=== PATIENT | male | born 1975 | race Caucasian/White ===

== ENCOUNTER 2017-06-11 00:46 | Observation (INO) ==
[2017-06-11] MEDS ORDERED: 0.9 % SODIUM CHLORIDE 1,000 ML IV ONE (00:53)
[2017-06-11] MEDS ORDERED: ONDANSETRON 4 MG/2 ML VIAL IV ONE ×2 (00:53→06:20)
[2017-06-11] MEDS: HYDROmorphone 2 MG/ML SYRINGE IV PRN ×9 (01:11→23:21)
--- NOTE | 2017-06-11 01:32 | Emergency Department Note ---
Lower Extremity Injury HPI - General Chief Complaint: Extremity Injury, Lower Stated Complaint: Left Leg Injury Time Seen by Provider: 06/11/17 01:02 Source: patient, EMS Mode of arrival: EMS Limitations: no limitations - History of Present Illness HPI Narrative: 42-year-old male who was drinking alcohol with some of his friends and resting around. Apparently he got lifted up and twisted around such that he hurt his left distal leg. Deformity at the tib-fib area distal third. - Related Data Allergies Allergy/AdvReac Type Severity Reaction Status Date / Time No Known Drug Allergies Allergy Verified 06/11/17 00:48 Review of Systems All systems ED: reviewed and negative except as stated. Past Medical History - Past Medical History Attestation: Yes: The following information was validated with the patient. Medical history: Reports: no medical history Surgical history ED: Reports: no surgical history - Social History smoking status: Current every day smoker Alcohol use: Reports: Recent Physical Exam Normocephalic atraumatic. Conjunctive are clear sclerae nonicteric. No nasal discharge or congestion. Heart is regular rate and rhythm no murmur appreciated. Lungs are clear to auscultation bilaterally without wheezes rales rhonchi rales or respiratory distress. Exam of the left lower leg shows normal dorsalis pedis and posterior tibialis pulses. He is able to move his toes and foot around some. However this does elicit tenderness and area of deformity above the ankle-at roughly the distal third of the tib-fib. I do not see any marked edema or erythema. The foot is normal in appearance and temperature and sensation appears intact. Limitations: no limitations Course Vital Signs Temperature 98.1 F 06/11/17 00:48 Pulse Rate 69 06/11/17 00:48 Respiratory Rate 18 06/11/17 00:48 Blood Pressure 92/71 06/11/17 00:48 Pulse Oximetry (%) 97 06/11/17 00:48 Temperature 98.1 F 06/11/17 00:48 Pulse Rate 73 06/11/17 01:17 Respiratory Rate 18 06/11/17 00:48 Blood Pressure 93/67 06/11/17 01:17 Pulse Oximetry (%) 98 06/11/17 01:17 Extremity Injury, Lower - Radiology Data Radiology results reviewed: Yes I reviewed the patient's radiology results. X-ray of the left tib-fib shows displaced fracture distal one third Disposition Pt seen by MANAGER OF SALES/PA only: No Clinical Impression: Tibia/fibula fracture, shaft Qualifiers: Encounter type: initial encounter Fracture type: closed Laterality: left Qualified Code(s): S82.202A - Unspecified fracture of shaft of left tibia, initial encounter for closed fracture Summary: Patient initially seen and evaluated. Given Dilaudid and Zofran for pain and nausea. X-rays done Discussed patient with Dr. Hall orthopedist long term care pharmacist. He advised us the patient needed surgery. He will coordinate for this we will write transition orders. Basic laboratory and EKG ordered preoperatively Disposition: [facility] Condition: Fair
[2017-06-11] MEDS ORDERED: ONDANSETRON 4 MG/2 ML VIAL IV PRN ×3 (01:48→09:18)
[2017-06-11] MEDS ORDERED: NALOXONE HCL 0.4 MG/ML VIAL IV PRN ×2 (01:48→09:18)
[2017-06-11 02:25] LABS: Basophils # (Auto) 0 K/mcL (0.0-0.3); Basophils % (Auto) 0.3 % (0.0-2.0); Eosinophils # (Auto) 0.1 K/mcL (0.0-0.7); Eosinophils % (Auto) 1.1 % (0.0-7.0); Granulocytes % (Auto) 74.3 % (38.0-78.0); Lymphocytes # (Auto) 2.5 K/mcL (1.5-4.8); Mean Corpuscular HGB Conc 34.3 g/dL (31.0-36.0); Mean Corpuscular Hemoglobin 33.3 pg (26.0-34.0); Monocytes # (Auto) 0.5 K/mcL (0.1-0.9); Monocytes % (Auto) 4.3 % (1.0-12.0); Platelet Count 293 K/mcL (140-440); Red Cell Distribution Width 12.9 % (11.5-14.5)
[2017-06-11 02:46] LABS: ALT/SGPT 29 U/l (0-40); Albumin 4.2 gm/dL (3.2-5.2); Albumin/Globulin Ratio 1.9 (1.0-2.3); Alkaline Phosphatase 64 U/L (39-117); Blood Urea Nitrogen 18 mg/dl (6-20)
[2017-06-11] MEDS: 0.9 % SODIUM CHLORIDE 1,000 ML IV SCH ×4 (05:20→17:40)
--- NOTE | 2017-06-11 05:50 | Orthopedic Consult Note ---
History of Present Illness - HPI Patient information: Note initiated : 06/11/17 at 5:46 am Service Date, if different from initiated Date: [] Patient: Ashish Kim 42 y/o M admitted on 06/11/17 for Left Leg Injury. Chief Complaint: [left leg injury] The patient reports that he was under the influence of alcohol early this morning when he was wrestling with a friend. He states he was picked up and dropped on his left leg and felt something odd in the leg. The ambulance was called and brought him to the ER where imaging shows a left tibia and fibula fracture. He currently reports his pain in his lower left leg and denies pain in his other extremities. He denies hitting his head or losing consciousness. He reports no significant medical history. He is an every day smoker and frequently uses alcohol as well as marijuana. He denies other recreational drug use and takes no prescription medications. He denies previous surgeries or fractures as well as no history of blood clots, CVA, TIA. 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 He is here with his mom and girlfriend. Consult date: 06/11/17 Consult reason: fracture Review of Systems Constitutional: no chills, no fever(s) Cardiovascular: no chest pain, no dyspnea, no palpatations, no radiating pain Respiratory: no cough, no dyspnea on exertion Musculoskeletal: abnormal gait, deformity, limited range of motion, no back pain , no neck pain, no numbness, no tingling Musculoskeletal: left: ankle pain, ankle swelling Integumentary: swelling, no wounds Neurological: no behavioral changes, no confusion Medications and Allergies Allergies Allergy/AdvReac Type Severity Reaction Status Date / Time No Known Drug Allergies Allergy Verified 06/11/17 00:48 Physical Examination - Ankle & Foot left Ankle appearance: swelling Foot appearance: normal Foot swelling: lateral Tenderness with palpation: lateral ankle, other (calf/anterior lower leg) Ankle pain worse with weight bearing: Yes (unable to bear weight) Tingling/Numbness: other (sensory intact to light touch entire lower left leg) Ankle alignment: hindfoot valgus ROM: dorsiflexion: 10 degrees ROM: plantarflexion: 10 degrees ROM: eversion: 10 degrees Strength: dorsiflexion: 4/5 Strength: plantarflexion: 4/5 Strength: inversion: 4/5 Strength: eversion: 4/5 Strength: toe extension: 4/5 Strength: toe flexion: 4/5 Assessment and Plan (1) Lateral malleolar fracture Assessment: left transverse midshaft medially displaced tibia and fibula fracture with a non-displaced left lateral malleolus fracture Plan: -After assessing the patient and reviewing the X-rays, which were reviewed with Dr. aHll, the recommended course of action is surgical fixation. Surgery was discussed with the patient including using an intramedullary tibial emerita for the left tibia fracture as well as ORIF of both left fibula fractures. The surgery was discussed at length with the patient including the risks and benefits including but not limited to nonunion of fracture, need for further surgery, infection, blood clot, compartment syndrome, loss of range of motion, injury to heart and lungs with anesthesia. The patient understands and wishes to proceed with surgery. Surgery is planned for today with Dr. Hall. -Admit overnight for observation and pain control -Patient lives in [place] and will likely transfer care there -pain control Status: Acute (2) Tibia/fibula fracture, shaft Status: Acute Qualifiers: Encounter type: initial encounter Fracture type: closed Laterality: left Qualified Code(s): S82.202A - Unspecified fracture of shaft of left tibia, initial encounter for closed fracture; S82.402A - Unspecified fracture of shaft of left fibula, initial encounter for closed fracture; S82.402A - Unspecified fracture of shaft of left fibula, initial encounter for closed fracture Exam Vital signs: Temp Pulse Resp BP Pulse Ox 98.1 F 80 18 111/73 100 06/11/17 02:55 06/11/17 02:55 06/11/17 02:55 06/11/17 02:55 06/11/17 02:55 Constitutional: well developed, well nourished, no acute distress Head: normocephalic, atraumatic Ears: hearing grossly normal Neck: supple Respiratory: clear to auscultation bilaterally Cardiovascular: regular rate & rhythm with no murmurs, rubs or gallops, no thrill or palpable murmurs, other (DP/PT pulses 2+ b/l. NVI b/l. motor and sensory grossly intact. Compartments soft ) Musculoskeletal: head and neck with normal alignment and mobility, spine with normal alignment and mobility, spine nontender to palpation and percussion left: decreased ankle ROM, ankle tenderness Skin: other (no lacerations or open wounds) Neurologic: sensation intact to touch Psychiatric: oriented to person, place and time Results - Labs Result Diagrams: 06/11/17 01:55 06/11/17 01:55 Labs: Abnormal lab results 06/11/17 06/11/17 Range/Units 01:55 01:55 WBC 12.6 H (4.5-11.0) K/mcL RBC 3.90 L (4.50-5.90) M/mcL Hgb 13.0 L (13.5-16.5) g/dL Hct 37.8 L (41.0-55.0) % MPV 7.3 L (7.4-10.4) fL Gran # 9.3 H (1.8-8.0) K/mcL Carbon Dioxide 21 L (22-30) mmol/L Anion Gap 17.0 H (8-16) Glucose 116 H (70-105) mg/dL Calcium 8.4 L (8.6-10.4) mg/dl H & H 06/11/17 Range/Units 01:55 Hgb 13.0 L (13.5-16.5) g/dL Hct 37.8 L (41.0-55.0) % All other labs normal. - Diagnostic results Ankle/Foot x-ray: image reviewed, other (4 views of the left tibia and fibula reveal midshaft transverse and medially displaced tibia and fibula fractures with a nondisplaced Fontana C lateral malleolus fracture. The ankle joint is preserved with an intact mortise. The patella and foot appear without bony injury or displacement. No other acute abnormalities are identified. )
[2017-06-11 05:53] LABS: Appearance,Urine CLEAR; Bilirubin,Urine NEG (NEG); Color,Urine YELLOW; Glucose,Urine (UA) NEGATIVE (NEG); Leukocyte Esterase,Urine NEG /uL (NEG); Nitrate,Urine NEG (NEG); Protein,Urine NEG (NEG); Specific Gravity,Urine 1.009 (1.000-1.035); Urine Blood NEG mg/dL (<0.03); Urobilinogen,Urine NEG (NEG)
[2017-06-11] MEDS ORDERED: FAMOTIDINE/PF 20 MG/2 ML VIAL IV ONE (05:59)
[2017-06-11] MEDS ORDERED: METOCLOPRAMIDE 10 MG/2 ML VIAL IV ONE (05:59)
[2017-06-11] MEDS ORDERED: ceFAZolin 1 GM VIAL IV ONE (06:20)
[2017-06-11] MEDS ORDERED: KETAMINE 100 MG/ML ML IV ONE (06:20)
[2017-06-11] MEDS ORDERED: LIDOCAINE HCL/PF 100 MG/5 ML SYRINGE IV ONE (06:20)
[2017-06-11] MEDS ORDERED: PROPOFOL 200 MG/20 ML VIAL IV ONE (06:20)
[2017-06-11] MEDS ORDERED: fentaNYL 250 MCG/5 ML VIAL IV ONE (06:20)
[2017-06-11] MEDS ORDERED: MIDAZOLAM 5 MG/5 ML VIAL IV ONE (06:20)
[2017-06-11] MEDS ORDERED: GLYCOPYRROLATE 0.2 MG/ML VIAL IV ONE (06:20)
[2017-06-11] MEDS ORDERED: LACTATED RINGERS 1,000 ML IV SCH (08:30)
[2017-06-11] MEDS ORDERED: PROMETHAZINE 25 MG/ML VIAL IV PRN (08:30)
[2017-06-11] MEDS ORDERED: MEPERIDINE 25 MG/ML SYRINGE IV PRN (08:30)
[2017-06-11] MEDS ORDERED: IPRATROPIUM/ALBUTEROL 3 ML AMPUL.NEB NEB PRN (08:30)
[2017-06-11] MEDS ORDERED: METOPROLOL TARTRATE 5 MG/5 ML VIAL IV PRN (08:30)
[2017-06-11] MEDS ORDERED: METHOCARBAMOL 1,000 MG/10 ML VIAL IV PRN (08:30)
[2017-06-11] MEDS ORDERED: fentaNYL 100 MCG/2 ML VIAL IV PRN (08:30)
--- NOTE | 2017-06-11 09:17 | Brief Operative Note ---
Date of procedure: 06/11/17 Pre-op diagnosis: left tib fib fracture Post-op diagnosis: same Procedure: IMN left tibia, ORIF left fibula Grafts/Implants: Yes Anesthesia: GETA Complications: none Surgeon: Lukas Hall Cold Meat Chef: Maren Neal Estimated blood loss (cc): 150 Specimens Removed/Pathology: none sent Condition: stable Disposition: PACU
[2017-06-11] MEDS ORDERED: FLEETS ADULT ENEMA PR PRN (09:18)
[2017-06-11] MEDS ORDERED: BISACODYL 10 MG SUPP.RECT PR PRN (09:18)
[2017-06-11] MEDS ORDERED: BENZOCAINE/MENTHOL 1 LOZENGE PO PRN (09:18)
[2017-06-11] MEDS ORDERED: ONDANSETRON ODT 4 MG TABLET SL PRN (09:18)
[2017-06-11] MEDS ORDERED: POLYETHYLENE GLYCOL 3350 17 GM PACKET PO PRN (09:18)
[2017-06-11] MEDS ORDERED: MAGNESIUM HYDROXIDE 30 ML ORAL.SUSP PO PRN (09:18)
--- NOTE | 2017-06-11 09:53 | XRay Report ---
HISTORY: Reason for Exam:fall, wrestling FINDINGS: There are acute transverse fractures at the junction of the middle and distal third of the tibia and fibula. Both bones are displaced posteriorly and laterally and retracted proximally. There is also a fracture just above the lateral malleolus. Proximal tibia and fibula are normal. IMPRESSION: Two fractures in the distal fibula and solitary fracture of the tibia with moderate deformity Interpreted and Authenticated by: Mikie Harden 06/11/17
--- NOTE | 2017-06-11 10:18 | XRay Report ---
HISTORY: Reason for Exam:surgery repair fractured tibia and fibula FINDINGS: A long intramedullary emerita has been inserted from above the anterior tibial tubercle, extending across the fracture in the distal half of the tibia, down to the distal metaphyseal region. This is secured with crossing screws both proximally and distally. There is a long metal plate secured to the lateral border of the fibula from the mid shaft to the lateral malleolus. This is held in alignment with multiple screws. The deformities seen at the fracture sites on the preoperative x-ray have been corrected. There is no longer displacement or foreshortening. IMPRESSION: Good alignment following open reduction internal fixation of the fractured tibia and fibula Interpreted and Authenticated by: Mikie Harden 06/11/17
[2017-06-11] MEDS: ASPIRIN 325 MG ENTERIC COATED TABLET PO SCH (11:47)
[2017-06-11] MEDS: METHOCARBAMOL 750 MG TABLET PO PRN ×2 (12:48→22:50)
[2017-06-11] MEDS: HYDROcodone/APAP 10/325MG TABLET PO PRN ×3 (14:01→22:47)
[2017-06-11] MEDS: ceFAZolin 1 GM VIAL IV SCH ×2 (14:45→22:49)
[2017-06-11] MEDS ORDERED: SENNOSIDES 1 TABLET PO SCH (21:00)
[2017-06-11] MEDS: DOCUSATE SODIUM 100 MG CAPSULE PO SCH (22:49)
[2017-06-12] MEDS: HYDROcodone/APAP 10/325MG TABLET PO PRN ×2 (02:51→07:24)
[2017-06-12] MEDS: 0.9 % SODIUM CHLORIDE 1,000 ML IV SCH ×3 (03:30→05:49)
[2017-06-12] MEDS: HYDROmorphone 2 MG/ML SYRINGE IV PRN ×3 (04:12→12:30)
[2017-06-12] MEDS: METHOCARBAMOL 750 MG TABLET PO PRN ×2 (05:22→12:32)
[2017-06-12] MEDS ORDERED: FLU VACC QS2017-18 36MOS UP/PF 60 MCG/0.5 ML SYRINGE IM ONE (10:00)
[2017-06-12] MEDS: DOCUSATE SODIUM 100 MG CAPSULE PO SCH (10:45)
[2017-06-12] MEDS: ASPIRIN 325 MG ENTERIC COATED TABLET PO SCH (10:45)
--- NOTE | 2017-06-12 11:11 | Discharge Summary ---
Ortho Discharge Plan - General - Patient Instructions Diet: Regular Diet Activity: non weight bearing Dressing Care: May shower in 2 days - Problem Maintenance (1) Tibia/fibula fracture, shaft Status: Acute Qualifiers: Encounter type: initial encounter Fracture type: closed Laterality: left Qualified Code(s): S82.202A - Unspecified fracture of shaft of left tibia, initial encounter for closed fracture; S82.402A - Unspecified fracture of shaft of left fibula, initial encounter for closed fracture; S82.402A - Unspecified fracture of shaft of left fibula, initial encounter for closed fracture - Follow Up Plan Disposition: Home, Self-Care Prognosis: Good Rehab Potential: Good I certify that the patient requires SNF services: No Overall status at discharge: patient is progressing back to baseline
--- NOTE | 2017-06-12 11:11 | Orthopedic Progress Note ---
Subjective Patient information: Note initiated : 06/12/17 at 11:09 am Service Date, if different from initiated Date: [] Patient: Ashish Kim 42 y/o M admitted on 06/11/17 for Left Leg Injury. Chief Complaint: [] Interval history: doing well. painful but controlled Objective Vital signs: Vital Signs Temp Pulse Pulse Resp BP Pulse Ox 06/12/17 07:38 96 06/12/17 07:30 94 H 16 94 06/12/17 07:20 98.5 F 90 20 116/76 96 06/12/17 04:00 98 F 83 18 128/79 96 06/11/17 23:27 98 F 85 17 118/74 94 06/11/17 20:00 98.7 F 81 12 131/81 94 06/11/17 15:16 98.4 F 18 136/80 96 06/11/17 12:00 123/68 96 06/11/17 11:30 135/75 95 Intake and Output 06/11/17 06/12/17 06/12/17 21:59 05:59 13:59 Intake Total 180 / 180 700 / 700 Output Total 1350 / 1350 2100 / 2100 Balance -1170 / -1170 -1400 / -1400 Intake: Oral 180 / 180 700 / 700 Output: Urine Catheter Amount 1200 / 1200 Void Amount 1350 / 1350 900 / 900 Other: Meal Dinner Percent of Meal Consumed 25% Feeding Ability Independent Weight 195 lb Intake & Output: Intake & Output 06/11/17 06/12/17 06/12/17 21:59 05:59 13:59 Intake Total 180 / 180 700 / 700 Output Total 1350 / 1350 2100 / 2100 Balance -1170 / -1170 -1400 / -1400 Weight 195 lb Intake: Oral 180 / 180 700 / 700 Output: Urine Catheter Amount 1200 / 1200 Void Amount 1350 / 1350 900 / 900 Other: Meal Dinner Percent of Meal Consumed 25% Feeding Ability Independent Incision: Yes healing Incision clean and dry: Yes Dressing: Yes clean, Yes dry, Yes intact Weight bearing status: non Neurological exam IM: Yes abnormal gait, Yes alert, Yes oriented X3, Yes motor sensory intact, Yes neurovascular intact Extremities exam IM: No calf tenderness, Yes Foot pink and warm, Yes neurovascular intact - Labs CBC & BMP: 06/12/17 03:50 06/11/17 01:55 Labs: 06/12/17 06/11/17 03:50 01:55 Hgb 11.5 L 13.0 L Hct 33.2 L 37.8 L Assessment and Plan (1) Tibia/fibula fracture, shaft pod 1 s/p imn tibia and orif fibula nwb pain control pt home with f/u in 10-14 days counseled about compartment syndrome Status: Acute Qualifiers: Encounter type: initial encounter Fracture type: closed Laterality: left Qualified Code(s): S82.202A - Unspecified fracture of shaft of left tibia, initial encounter for closed fracture; S82.402A - Unspecified fracture of shaft of left fibula, initial encounter for closed fracture; S82.402A - Unspecified fracture of shaft of left fibula, initial encounter for closed fracture
[2017-06-12] MEDS: oxyCODONE/APAP 5/325MG TABLET PO PRN ×2 (11:22→15:07)
--- NOTE | 2017-06-13 10:09 | Operative Note ---
DATE OF OPERATION: 06/11/2017 PREOPERATIVE DIAGNOSES: 1. Left oblique tibia fracture at the diaphysis between the middle and distal third. 2. Comminuted segmental fibula fracture at the distal third and at the mortise. POSTOPERATIVE DIAGNOSES: 1. Left oblique tibia fracture at the diaphysis between the middle and distal third. 2. Comminuted segmental fibula fracture at the distal third and at the mortise. PROCEDURE PERFORMED: 1. Intramedullary nailing of left tibia. 2. Open reduction and internal fixation of left fibula. SURGEON: Jarad Hall M.D. STRAIGHT LINE PRESS SETTER: Maren Neal PA-C. ANESTHESIA: General. FINDINGS: 1. Oblique fracture of the distal tibia diaphysis at the junction of the middle and distal third which was buttonholed through fascia. 2. Comminuted segmental fracture of the fibula with a butterfly fragment at the junction of the middle and distal third and a minimally displaced fracture through the mortise. IMPLANTS: Sixto tibial nail, standard 9 x 345 mm; fully-threaded locking screw 5 x 37.5 mm, 5 x 45 mm, 5 x 65 mm and 5 x 60 mm; Sixto one-third tubular plate 16-hole with a combination of cortical and locking screws. SPECIMENS: None. COMPLICATIONS: None. DRAINS: None. DISPOSITION: To PACU in stable condition. INDICATION: The patient is a 42-year-old male. He was intoxicated last night and wrestling with his friend and sustained the above fracture. He was admitted to the hospital. He came in about 2:00 when I was contacted. He was showing no signs of compartment syndrome, and due to his high level of intoxication, it was felt that a delay of surgery for several hours would be warranted with close monitoring. We proceeded with surgery early in the morning. He and his girlfriend wished to proceed with this plan. The risks and benefits were discussed with the patient in detail including, but not limited to, the risks of anesthesia, problems with the heart or lungs related to anesthesia, infection, compromise or injury to the nerves and blood vessels, deep venous thrombosis, pulmonary embolism, pneumonia, continued pain after surgery, worsening pain or symptoms after surgery, swelling, loss of motion, need for repeat surgery, hardware failure, re-tear or failure of repair site, malunion, nonunion, and hardware pain requiring future removal. OPERATIVE NOTE: The patient was seen preoperatively where all questions were answered and the correct side and site were identified and marked. He was then transferred to the operating room and given 2 grams of Ancef and general anesthesia was administered without complication. A bump was placed underneath his buttock and tourniquet was placed on his left upper thigh. He was prepped and draped in the usual sterile fashion from the toes up to the tourniquet. An Esmarch bandage was used to exsanguinate the limb, and the tourniquet was inflated to 300 mmHg. A standard lateral approach was created to the fibula through the skin and subcutaneous tissue, and mobile windows were created medially and laterally. We protected the superficial peroneal nerve and then dissected it out through its course. We dissected down to the fibula and subperiosteally elevated. Distally the fracture was minimally displaced. It was provisionally pinned. The proximal fracture was comminuted and shortened, and I was able to reach through and feel the tibia which was buttonholed through fascia. We were able to free up the fascia and reduce the tibia which helped us reduce the fibula. We used lobster claws for preliminary reduction, as well as the butterfly fragment. We placed a 16-hole [place] distal fibula plate with a combination of cortical and locking screws fixing the segmental fracture both proximally and distally and spanning across that site. Radiographs confirmed that the hardware was in good position and the fracture was anatomically reduced. We then turned our attention to the tibia. We made a standard suprapatellar approach and made a split in the quadriceps tendon. We placed the guide as well as the elastic insertion sleeve for protection of the joint. We used a K-wire and placed it preliminary in the ___ incision center on the AP and just off the anterior lip on the tibia on the lateral view. We placed the guidepin appropriately and confirmed. We then overreamed with the proximal drill. We placed a ball-tipped guidewire down through the fracture site on the tibia which had been anatomically reduced. We measured the nail at 345 mm length. We then sequentially reamed from a 6 up to a 10.5 with good cortical chatter. We placed a 9 x 345 mm nail. We placed two 5 x 35 mm and 5 x 45 mm screws using perfect umkumiut technique from medial to lateral distally. We then backslapped to anatomically reduce the fracture. We placed two locking screws fully threaded through the guide proximally, a 5 x 65 mm and 5 x 60 mm. This secured the fragment. We then took final radiographs confirming that the fracture was anatomically reduced and the hardware was in good position. We thoroughly irrigated. We closed the deep fascia with 0 Vicryl as well as the quad tendon split with Stratafix. The subcutaneous layer was closed with 2-0 Monocryl and the skin was closed with zee. He was dressed with Xeroform, 4 x 4, ABD and an Ajay bandage. He was placed into a pneumatic boot. He was then extubated, transferred to a stretcher and taken to PACU in stable condition. SORAYA:luis eduardo Job ID: [id number] Doc ID: [id number] Jarad Hall MD
== END 2017-06-12 15:45 | disposition home or self-care (01) ==
LOC: MEDSUR 00:46 → ED 00:46 → MEDSUR 02:55
PROVIDERS: ADMIT Orthopaedic Surgery Sports Medicine; ATTEND Orthopaedic Surgery Sports Medicine